=== PATIENT | male | born 1965 | race Caucasian/White ===

== ENCOUNTER 2016-11-08 15:39 | Outpatient (CLI) | payer BC | END 2016-11-08 15:40 | disposition home or self-care (01) | DX: R07.9 Chest pain, unspecified (principal); R07.89 Other chest pain ==

== ENCOUNTER 2019-05-12 14:26 | Outpatient (CLI) | payer BC ==
--- NOTE | 2019-05-12 16:41 | CARDIAC PROCEDURE NOTE ---
DATE OF SERVICE: 05/12/2019 Physician: Ana Garza MD, [facility] INDICATIONS: Dyspnea on exertion, bradycardia. CARDIAC RISK FACTORS: Male gender, family history of heart disease at young age, smoker. DESCRIPTION OF PROCEDURE: After signing informed consent, the patient underwent a Ray-protocol treadmill stress test. No imaging was ordered with this test. RESTING HEART RATE: 82. PEAK HEART RATE: 141 (84% predicted maximum heart rate for age). RESTING BLOOD PRESSURE: 110/69. PEAK BLOOD PRESSURE: 141/60, then haven slightly in early recovery to 152/60. The patient exercised for 6 minutes and 46 seconds on a Ray-protocol treadmill stress test. He achieved a peak heart rate of 141 (84% predicted maximum heart rate for age) and 8.2 METs. The patient experienced moderate shortness of breath at stage 2 and moderate to severe shortness of breath at stage 3, and described his Mauro exertion scale at 17/20 at peak. The patient had no chest pain during this entire test. Oxygen saturation was 96-98% during the entire test, 98% in early recovery. RESTING EKG: Normal sinus rhythm, rate 79, left atrial enlargement, otherwise within normal limits. EKG AT PEAK: 1.[address] depressions in leads V3 through V5. These returned back to baseline by 3 minutes of recovery. SUMMARY 1. Essentially normal resting EKG. No bradycardia was seen. 2. Ischemic changes develop with exertion at a good level of stress with significant dyspnea symptom. 3. No imaging study was ordered with this test. 4. This patient's cardiac risk by EKG criteria: Moderate. 5. Consider repeat stress testing with cardiac imaging, if clinically indicated or Cardiology referral. cc: CHEY Amor TD: 05/12/2019 16:13 MTDD
== END 2019-05-12 14:27 | disposition home or self-care (01) ==
LOC: DI 14:26
PROVIDERS: ATTEND Nurse Practitioner Family
DX: R06.09 Other forms of dyspnea (principal)

== ENCOUNTER 2022-07-13 20:33 | Emergency (ER) | payer BC ==
[2022-07-13 20:57] VITALS: BP 148/79
--- NOTE | 2022-07-13 21:58 | ED Physician Documentation ---
PD HPI OPHTHO - Stated complaint Stated Complaint: DISTORTED VISION - Chief complaint Chief Complaint: Heent - History obtained from History obtained from: Patient - Additional information Additional information: Patient is a 57-year-old gentleman with no significant past medical history presenting for evaluation of visual disturbance that occurred around 2:00 this afternoon while he was doing some light housekeeping. Patient reports he was just cleaning his kitchen counters without any chemicals when he His vision appeared like he was looking through a wavy rainbow.It affected both of his eyes. He did close 1 eye at a time to see if there is any difference and there was not. He did not close both eyes to see if he was still seeing the visual abnormality. He reports his symptoms lasted approximately for 30 minutes and have not recurred. He denies having a headache at the time, difficulties with speech or swallowing, focal weakness.He has never had symptoms like this before. Review of Systems Constitutional: denies: Fever Eyes: denies: Loss of vision Cardiac: denies: Chest pain / pressure Respiratory: denies: Dyspnea GI: denies: Abdominal Pain Musculoskeletal: denies: Back pain Neurologic: denies: Headache PD PAST MEDICAL HISTORY - Past Medical History Cardiovascular: None Respiratory: None Endocrine/Autoimmune: None GI: None : None HEENT: None Psych: None Musculoskeletal: None Derm: None - Present Medications Home Medications: Ambulatory Orders Medication Instructions Recorded Confirmed No Known Home Medications 05/23/16 07/13/22 - Allergies Allergies/Adverse Reactions: Allergies Allergy/AdvReac Type Severity Reaction Status Date / Time No Known Drug Allergies Allergy Verified 07/13/22 20:57 PD ED PE NORMAL - General General: Alert and oriented X 3, No acute distress, Well developed/nourished - HEENT HEENT: Atraumatic, PERRL, EOMI, Moist mucous membranes, Pharynx benign - Neck Neck: Supple, no meningeal sign - Cardiac Cardiac: RRR, No murmur - Respiratory Respiratory: No respiratory distress, Clear bilaterally - Derm Derm: Warm and dry - Neuro Neuro: Alert and oriented X 3, 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 He never had loss of vision or double vision. He has been symptom-free since that time and is symptom-free here in the emergency department.Vision appears to be intact here. He has a normal neuro exam.He did not have a headache at that time or other Associated factors.Discussed need for close follow-up with ophthalmology and strict return precautions for any recurrence of his symptoms Or new symptoms. Departure - Departure Disposition: 01 Home, Self Care Clinical Impression: Visual aura Condition: Stable Follow-Up: Rodney Díaz MD [Provider Admit Priv/Credential] - Comments: The exact cause of your eye symptoms Earlier seems to be on clear. It is reassuring that your vision has been back to normal now Your exam here was normal. I do not see signs of a stroke at this time. I would recommend follow- up with an review engineer for a more thorough eye evaluation. If your symptoms return or you have any new Concerning symptoms please consider return to the ER. Discharge Date/Time: 07/13/22 22:00
== END 2022-07-13 22:00 | disposition home or self-care (01) ==
LOC: ED 20:33
DX: H53.8 Other visual disturbances (principal)
CPT/HCPCS: 99282